=== PATIENT | female | born 1950 | race Caucasian/White ===

== ENCOUNTER 2017-08-13 06:56 | Emergency (ER) | payer BC ==
[2017-08-13] MEDS ORDERED: Ondansetron ODT 4 MG TAB ONE (07:12)
[2017-08-13] MEDS ORDERED: Ibuprofen 200 MG TAB ONE (07:45)
== END 2017-08-13 08:34 | disposition home or self-care (01) ==
LOC: SCSER 06:56
DX: R11.2 Nausea with vomiting, unspecified (principal); R51 Headache; K21.9 Gastro-esophageal reflux disease without esophagitis; E78.5 Hyperlipidemia, unspecified; I10 Essential (primary) hypertension
CPT/HCPCS: 99283; Q0162

== ENCOUNTER 2017-12-16 07:35 | Outpatient (CLI) | payer BC ==
--- NOTE | 2017-12-16 10:38 | ULT ---
ULTRASOUND ABDOMEN: Date: 12/16/17 HISTORY: Abdominal pain. FINDINGS: The patient is post cholecystectomy. The liver demonstrates homogeneous echotexture without focal mas s or intrahepatic ductal dilatation. The spleen is normal, measuring 10.4 cm. The common duct measure s 3.0 mm in diameter. The visualized portions of the pancreas, aorta, and IVC are unremarkable. No hy dronephrosis or renal mass is seen on either side. There is a prominent left-sided renal pelvis. The right kidney measures 7.1 cm and the left kidney measures 12.3 cm. IMPRESSION: 1. Status post cholecystectomy. 2. Atrophic right kidney. POS: [facility]
== END 2017-12-16 07:36 | disposition home or self-care (01) ==
LOC: ULT 07:35
PROVIDERS: ATTEND Internal Medicine
DX: R10.84 Generalized abdominal pain (principal); N28.89 Other specified disorders of kidney and ureter; Z90.49 Acquired absence of other specified parts of digestive tract
CPT/HCPCS: 76700

== ENCOUNTER 2018-05-14 17:05 | Emergency (ER) | payer BC, MEDICARE ==
[2018-05-14] MEDS ORDERED: Diazepam 5 MG TAB ONE (17:37)
[2018-05-14] MEDS ORDERED: Dexamethasone 10 MG/ML VIAL ONE (17:38)
[2018-05-14] MEDS ORDERED: Ketorolac Tromethamine 30 MG/ML VIAL ONE (17:38)
[2018-05-14] MEDS ORDERED: Morphine 4 MG/ML VIAL ONE (17:38)
== END 2018-05-14 18:00 | disposition home or self-care (01) ==
LOC: SCSER 17:05
DX: G56.21 Lesion of ulnar nerve, right upper limb (principal); K21.9 Gastro-esophageal reflux disease without esophagitis; E78.5 Hyperlipidemia, unspecified; I10 Essential (primary) hypertension; Z79.899 Other long term (current) drug therapy
CPT/HCPCS: 93005; 96372; J1100; J1885; J2270

== ENCOUNTER 2018-07-06 14:43 | Emergency (ER) | payer BC, MEDICARE ==
[2018-07-06 15:13] LABS: #Basophils 0.1 thou/uL (0.0-0.2); #Eosinphils 0.2 thou/uL (0.0-0.7); #Monocytes 0.4 thou/uL (0.11-0.59); #Neutrophils 3.8 thou/uL (1.40-6.50); %Basophils 1.1 % (0.0-1.0); %Eosinophils 2.4 % (0.0-10.0); %Lymphocytes 30.8 % (21.0-51.0); %Monocytes 6.6 % (0.0-10.0); Hemoglobin 15.3 g/dL (12.0-16.0); Mean Corpuscular HGB CONC 32.1 g/dL (32.0-36.0); Mean Corpuscular Volume 87.1 fL (78.0-98.0); Mean Platelet Volume 8.7 fL (7.4-10.4); Platelet Count 203 thou/uL (130-400); RBC Distribution Width 12.5 % (11.5-14.5); Red Blood Cell (RBC) Count 5.46 mill/uL (4.20-5.40); White Blood Cell (WBC) Count 6.4 thou/uL (4.8-10.8)
[2018-07-06 15:22] LABS: ALT (SGPT) 21 U/L (8-55); AST (SGOT) 20 U/L (5-34); Albumin 4.3 g/dL (3.4-4.8); Alkaline Phosphatase 58 U/L (40-150); Anion Gap 15 mmol/L (10-20); BUN (Urea Nitrogen) 13 mg/dL (9.8-20.1); Bilirubin, Total 0.5 mg/dL (0.2-1.2); Calc. Creatinine Clearance 0 mL/min (70-130); Calcium 9.8 mg/dL (7.8-10.44); Carbon Dioxide 24 mmol/L (23-31); Chloride 106 mmol/L (98-107); Estimated GFR-MDRD 75; Globulin 2.8 g/dL (2.4-3.5); Glucose 116 mg/dL (80-115); Potassium 3.5 mmol/L (3.5-5.1); Protein, Total 7.1 g/dL (6.0-8.3); Sodium 141 mmol/L (136-145)
--- NOTE | 2018-07-06 15:24 | RAD ---
SINGLE VIEW OF THE CHEST: Comparison: None. History: Chest palpitations, dyspnea, dizziness. FINDINGS: Single view of the chest shows a normal sized cardiomediastinal silhouette. There is no evidence of c onsolidation, mass, or pleural effusion. The bones are unremarkable. IMPRESSION: No evidence of acute cardiopulmonary disease. POS: [facility]
--- NOTE | 2018-07-09 22:21 | EKG ---
Test Reason : CHEST PAIN Blood Pressure : / mmHG Vent. Rate : 079 BPM Atrial Rate : 079 BPM P-R Int : 154 ms QRS Dur : 082 ms QT Int : 360 ms P-R-T Axes : 000 -25 -33 degrees QTc Int : 412 ms Normal sinus rhythm Q waves III, aVF new since 14-MAY-2018 Abnormal ECG Confirmed by JOAQUÍN LACY, HAYLEY ([id number]), supervising film or videotape editor ALYSSA COBB ([id number]) on 07/09/2018 10:21:16 PM Referred By: Shannon YANES Confirmed By:HAYLEY YANES MD
== END 2018-07-06 16:07 | disposition home or self-care (01) ==
LOC: SCSER 14:43
DX: I49.3 Ventricular premature depolarization (principal); R55 Syncope and collapse; K21.9 Gastro-esophageal reflux disease without esophagitis; E78.5 Hyperlipidemia, unspecified; I10 Essential (primary) hypertension
CPT/HCPCS: 71045; 80053; 83880; 84484; 85025; 93005

== ENCOUNTER 2018-10-04 11:55 | Outpatient (CLI) | payer BC, MEDICARE ==
--- NOTE | 2018-10-04 13:02 | MMO ---
Bilateral MAMMO Bilat Screen [facility]. CLINICAL HISTORY: Patient is 67 years old and is seen for screening. The patient has no family history of breast cancer. The patient has no personal history of cancer. VIEWS: The views performed were: bilateral craniocaudal with tomosynthesis and bilateral mediolateral oblique with tomosynthesis. FILMS COMPARED: The present examination has been compared to prior imaging studies performed at [facility] on 07/03/2015 and 02/22/2017, and at [facility] on 11/06/2009 and 08/30/2013. MAMMOGRAM FINDINGS: There are scattered fibroglandular densities. Finding 1: There are stable benign appearing calcifications seen in both breasts. Finding 2: There are stable benign appearing densities seen in both breasts. There are no suspicious masses, suspicious calcifications, or new areas of architectural distortion. IMPRESSION: THERE IS NO MAMMOGRAPHIC EVIDENCE OF MALIGNANCY. A ROUTINE FOLLOW-UP MAMMOGRAM IN 1 YEAR IS RECOMMENDED. THE RESULTS OF THIS EXAM WERE SENT TO THE PATIENT. ACR BI-RADS Category 2 - Benign finding MAMMOGRAPHY NOTE: 1. A negative mammogram report should not delay a biopsy if a dominant of clinically suspicious mass is present. 2. Approximately 10% to 15% of breast cancers are not detected by mammography. 3. Adenosis and dense breasts may obscure an underlying neoplasm.
== END 2018-10-04 11:56 | disposition home or self-care (01) ==
LOC: BICMAMMO 11:55
PROVIDERS: ATTEND Internal Medicine
DX: Z12.31 Encounter for screening mammogram for malignant neoplasm of breast (principal)
CPT/HCPCS: 77063; 77067

== ENCOUNTER 2018-11-02 13:56 | Outpatient (CLI) | payer BC ==
--- NOTE | 2018-11-02 15:38 | CT ---
CT ABDOMEN WITH AND WITHOUT CONTRAST: Date: 11/02/18 INDICATION: Epigastric pain. Reference made to the 09/14/16 exam (CT abdomen/pelvis with contrast). FINDINGS: Evaluation of precontrast imaging reveals no evidence of calcified urinary tract calculi. There are m etallic clips related to prior cholecystectomy. Granulomatous calcification of the spleen is present. The contrast-opacified small bowel is of normal caliber. Postcontrast imaging reveals no pathologic enhancing mass in the solid abdominal organs. Parapelvic cyst formation of the left kidney is again d emonstrated. Abdominal aorta is normal in caliber. There is no free air. Mild levocurvature of the melinda mbar spine is present. There are no acute osseous abnormalities seen. The imaged lung bases reveal mi nimal subpleural patchy opacification. IMPRESSION: No acute abnormalities are visualized. POS: [facility]
== END 2018-11-02 13:57 | disposition home or self-care (01) ==
LOC: BICCT 13:56
PROVIDERS: ATTEND Internal Medicine
DX: N28.1 Cyst of kidney, acquired (principal); R10.9 Unspecified abdominal pain
CPT/HCPCS: 74170

== ENCOUNTER 2019-01-25 07:46 | Outpatient (CLI) | payer BC ==
--- NOTE | 2019-01-25 13:34 | NM ---
NUCLEAR MEDICINE GASTRIC EMPTYING EXAM: HISTORY: Left upper quadrant abdominal pain. TECHNIQUE: A nuclear medicine gastric emptying exam was performed after administration of 2.2 mCi of sulfur virgen oid mixed with eggs. FINDINGS: 18% emptying is seen at 26 minutes. 39% emptying is seen at 54 minutes. 77% emptying is seen at 128 minutes. 98% emptying is seen at 193 minutes. T-1/2 gastric emptying is approximately 75 minutes. No gastroesophageal reflux was seen during the examination. IMPRESSION: Normal gastric emptying exam. POS: [facility]
== END 2019-01-25 07:47 | disposition home or self-care (01) ==
LOC: NM 07:46
PROVIDERS: ATTEND Internal Medicine Gastroenterology
DX: K44.9 Diaphragmatic hernia without obstruction or gangrene (principal); K21.9 Gastro-esophageal reflux disease without esophagitis; R10.12 Left upper quadrant pain; Z80.0 Family history of malignant neoplasm of digestive organs
CPT/HCPCS: 78264; A9541

== ENCOUNTER 2019-06-06 09:05 | Outpatient (CLI) | payer BC ==
--- NOTE | 2019-06-06 10:10 | CT ---
EXAM: CT angiogram abdomen with IV contrast and 3-D reconstruction PROVIDED CLINICAL HISTORY: Mesenteric arteritis. Patient has throbbing sensations and abdomen after eating. 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 This is at the site of the trifurcation of the common hepatic, left gastric, and splenic arteries. There is suggested mild narrowing at the origin o f the common hepatic artery, but the hepatic arteries otherwise appear patent. The abdominal aorta is normal in caliber without evidence of an aortic dissection. The bilateral comm on iliac arteries are patent. There is mild atherosclerotic plaque and vascular calcifications seen in the internal iliac arteries bilaterally mild atherosclerotic irregularity is seen involving the ri ght external iliac artery. The superior and inferior mesenteric arteries are patent. There is minimal linear atelectasis versus scarring at the posterior right lung base. Lung bases are otherwise clear. The liver, spleen, pancreas, bilateral adrenal glands, and right kidney demonstrate a normal CT appea tenisha left renal parapelvic cysts are again noted. Loops of small bowel are normal in caliber. However, there does appear to be mild bowel wall thickeni ng involving loops of proximal jejunum. No adjacent inflammatory changes are seen. Findings could be related to enteritis in the correct clinical scenario. Small hiatal hernia is present. Small amount of retained fecal material seen in the ascending colon. Degenerative changes are seen in the lower lumbar spine. A few nonspecific nonenlarged mesenteric lymph nodes are identified. Stable from prior exam. IMPRESSION: 1. 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 2. Mesenteric vessels do appear patent. The abdominal aorta is normal in caliber without evidence of aortic dissection or aneurysm. 3. Mild atherosclerotic irregularity involving the visualized iliac arteries. 4. Suggested mild bowel wall thickening involving loops of proximal jejunum. This could be related to peristalsis and incomplete distention, but enteritis in the correct clinical scenario is a possibility. 5. Small hiatal hernia.
[2019-06-06] MEDS ORDERED: Iopamidol 370 76% 100 ML VIAL ONE (14:41)
== END 2019-06-06 09:06 | disposition home or self-care (01) ==
LOC: CT 09:05
PROVIDERS: ATTEND Internal Medicine Gastroenterology
DX: K21.9 Gastro-esophageal reflux disease without esophagitis (principal); K44.9 Diaphragmatic hernia without obstruction or gangrene; K59.09 Other constipation; R10.12 Left upper quadrant pain; I70.208 Unspecified atherosclerosis of native arteries of extremities, other extremity; I72.8 Aneurysm of other specified arteries; Z80.0 Family history of malignant neoplasm of digestive organs
CPT/HCPCS: 74175; 82565; Q9967

== ENCOUNTER 2020-02-20 08:08 | Outpatient (CLI) | payer BC ==
--- NOTE | 2020-02-20 09:01 | ULT ---
Ultrasound of theabdomen: 02/20/2020 COMPARISON:Correlation made to CT of the abdomen performed 11/02/2018 HISTORY:Renal cyst TECHNIQUE: Multiplanar grayscale sonographic imaging of theabdomen provided FINDINGS:The visualized portions of the abdominal aorta, IVC, and pancreas appear grossly unremarkabl e. There is no focal liver lesion or intrahepatic biliary dilatation. The common bile duct measures 3 mm, within normal limits. The right kidney is partially obscured by bowel gas and demonstrates probable wall cortical thinning within the upper pole region on the basis of scar. Right kidney measures approximately 8 cm in craniocaudal dimension and demonstrates no stone, hydronephrosis, or mass. The left kidney measures 11.3 cm in craniocaudal dimension. There is decreased echogenicity within th e region of the renal hilum on the left, likely on the basis of parapelvic cysts when compared to prior CT exam. No hydronephrosis, mass lesion, or stones seen. Spleen measures up to 8.8 cm, within normal limits. The gallbladder is surgically absent IMPRESSION:No acute findings.
--- NOTE | 2020-02-20 09:23 | BD ---
BONE DENSITOMETRY: Date: 02/20/2020 HISTORY: Postmenopausal screening. FINDINGS: Lumbar Spine: BMD (g/cm2) L1 0.895 T-Score: -0.9 L2 0.971 T-Score: -0.5 L3 1.077 T-Score: -0.1 L4 1.188 T-Score: 1.2 Total 1.039 T-Score: -0.1 Left Femoral Neck: 0.649 T-Score: -1.8 Total Femur: 0.913 T-Score: -0.2 IMPRESSION: 1. Bone mineral density of the lumbar spine within normal range. 2. Bone mineral density of the femoral neck indicate osteopenia. 10 YEAR FRACTURE RISK: Major osteoporotic fracture: 9.8% Hip fracture: 1.4% POS: [facility]
--- NOTE | 2020-02-20 11:31 | MMO ---
Bilateral MAMMO Bilat Screen [facility]. CLINICAL HISTORY: Patient is 69 years old and is seen for screening. The patient has no family history of breast cancer. The patient has no personal history of cancer. VIEWS: The views performed were: bilateral craniocaudal with tomosynthesis and bilateral mediolateral oblique with tomosynthesis. FILMS COMPARED: The present examination has been compared to prior imaging studies performed at [facility] on 07/03/2015, 02/22/2017 and 10/04/2018, and at [facility] on 08/30/2013. This study has been interpreted with the assistance of computer-aided detection. MAMMOGRAM FINDINGS: There are scattered fibroglandular densities. Focal asymmetry with distortion inner right breast seen on cc tomosynthesis. In the left breast, there are no suspicious masses, calcifications or areas of architectural distortion. IMPRESSION: FINDING IN THE RIGHT BREAST REQUIRES ADDITIONAL EVALUATION. SPOT COMPRESSION IS RECOMMENDED. THE RESULTS OF THIS EXAM WERE SENT TO THE PATIENT. ACR BI-RADS Category 0 - Incomplete: Need additional imaging evaluation. [facility] will notify the patient of the need for additional imaging services. MAMMOGRAPHY NOTE: 1. A negative mammogram report should not delay a biopsy if a dominant of clinically suspicious mass is present. 2. Approximately 10% to 15% of breast cancers are not detected by mammography. 3. Adenosis and dense breasts may obscure an underlying neoplasm. Reported by: NORA EDMONDS MD Electonically Signed: [id number]
== END 2020-02-20 08:09 | disposition home or self-care (01) ==
LOC: BICMAMMO 08:08
PROVIDERS: ATTEND Internal Medicine
DX: Z12.31 Encounter for screening mammogram for malignant neoplasm of breast (principal); Z13.820 Encounter for screening for osteoporosis; N28.1 Cyst of kidney, acquired; Z78.0 Asymptomatic menopausal state; M85.852 Other specified disorders of bone density and structure, left thigh
CPT/HCPCS: 77063; 77067; 77080; 93975

== ENCOUNTER 2020-02-21 11:07 | Outpatient (CLI) | payer BC ==
--- NOTE | 2020-02-21 11:30 | MMO ---
Right Breast MAMMO Unilat Diag [facility]. CLINICAL HISTORY: Patient is 69 years old and is seen for additional evaluation requested from prior study. The patient has no family history of breast cancer. The patient has no personal history of cancer. VIEWS: The views performed were: right craniocaudal spot compression with tomosynthesis and right mediolateral with tomosynthesis. FILMS COMPARED: The present examination has been compared to [place] [facility] [place], 02/22/2017, 10/04/2018 and 02/20/2020. This study has been interpreted with the assistance of computer-aided detection. MAMMOGRAM FINDINGS: There are scattered fibroglandular densities. Tomosynthesis spot compression images show the abnormality to represent superimpostion of normal breast parenchyma. There are no suspicious masses, suspicious calcifications, or new areas of architectural distortion. IMPRESSION: THERE IS NO MAMMOGRAPHIC EVIDENCE OF MALIGNANCY. A ROUTINE FOLLOW-UP MAMMOGRAM IN 1 YEAR IS RECOMMENDED. THE RESULTS OF THIS EXAM WERE SENT TO THE PATIENT. ACR BI-RADS Category 2 - Benign finding MAMMOGRAPHY NOTE: 1. A negative mammogram report should not delay a biopsy if a dominant of clinically suspicious mass is present. 2. Approximately 10% to 15% of breast cancers are not detected by mammography. 3. Adenosis and dense breasts may obscure an underlying neoplasm. Reported by: KALYN SOTO MD Electonically Signed: [id number]
== END 2020-02-21 11:08 | disposition home or self-care (01) ==
LOC: BICMAMMO 11:07
PROVIDERS: ATTEND Internal Medicine
DX: R92.2 Inconclusive mammogram (principal)
CPT/HCPCS: G0279

== ENCOUNTER 2022-08-21 10:17 | Emergency (ER) | payer BC ==
[~2022-08-21 10:17] MED LIST: Iopamidol-370 76% 500 ML MDV (1 ML CHARGE) ONE
[2022-08-21 10:41] LABS: #Basophils 0.1 thou/uL (0.0-0.2); #Eosinphils 0.1 thou/uL (0.0-0.7); #Monocytes 0.5 thou/uL (0.11-0.59); %Basophils 1.2 % (0.0-1.0); %Eosinophils 1.8 % (0.0-10.0); %Lymphocytes 35.4 % (21.0-51.0); %Monocytes 8.4 % (0.0-10.0); %Neutrophils 53.1 % (42.0-75.0); Hemoglobin 15.4 g/dL (12.0-16.0); Mean Corpuscular HGB CONC 33.3 g/dL (32.0-36.0); Mean Corpuscular Hemoglobin 28.8 pg (27.0-31.0); Mean Corpuscular Volume 86.5 fl (78.0-98.0); Mean Platelet Volume 8.9 fL (7.4-10.4); Platelet Count 172 10x3/uL (130-400); RBC Distribution Width 11.6 % (11.5-14.5); Red Blood Cell (RBC) Count 5.35 mill/uL (4.20-5.40); White Blood Cell (WBC) Count 5.7 10x3/uL (4.8-10.8)
[2022-08-21 10:54] LABS: INR-International Normal Ratio 0.9; PTT 24.9 sec (22.9-36.1); Prothrombin Time 11.9 sec (12.0-14.7)
[2022-08-21 11:15] LABS: ALT (SGPT) 21 U/L (8-55); AST (SGOT) 23 U/L (5-34); Albumin 4.3 g/dL (3.4-4.8); Alkaline Phosphatase 51 U/L (40-110); Anion Gap 16 mmol/L (10-20); BUN (Urea Nitrogen) 12 mg/dL (9.8-20.1); Bilirubin, Total 0.4 mg/dL (0.2-1.2); CK (CPK) 91 U/L (29-168); Calc. Creatinine Clearance 0 mL/min (70-130); Calcium 9.6 mg/dL (7.8-10.44); Carbon Dioxide 23 mmol/L (23-31); Chloride 103 mmol/L (98-107); Estimated GFR 77; Globulin 3.1 g/dL (2.4-3.5); Glucose 102 mg/dL (80-115); Potassium 3.6 mmol/L (3.5-5.1); Protein, Total 7.4 g/dL (5.8-8.1); Sodium 138 mmol/L (136-145)
[2022-08-21] MEDS ORDERED: Ketorolac Tromethamine 30 MG/ML VIAL ONE (11:47)
[2022-08-21 12:06] LABS: Bilirubin Negative (Negative); Blood, Urine Negative (Negative); Clarity Clear (Clear); Glucose, Urine (Dipstick) Normal (Negative); Ketone, Urine Negative (Negative); Leukocyte Negative Leu/uL (Negative); Nitrite Negative (Negative); Protein, Urine (Dipstick) Negative (Neg-Trace); Specific Gravity, Urine 1.016 (1.002-1.036); Urobilinogen Normal mg/dL (Less than 2); pH, Urine 7.5 (5.0-9.0)
== END 2022-08-21 15:30 | disposition home or self-care (01) ==
LOC: ERS 10:17
DX: R53.1 Weakness (principal); I10 Essential (primary) hypertension; E78.5 Hyperlipidemia, unspecified; K21.9 Gastro-esophageal reflux disease without esophagitis
CPT/HCPCS: 36416; 70450; 70496; 70498; 70551; 71045; 80053; 81003; 82550; 84484; 85025; 85610; 85730; 93005; 96374; J1885; Q9967

== ENCOUNTER 2023-02-11 13:01 | Outpatient (CLI) | payer BC | END 2023-02-11 13:02 | disposition home or self-care (01) | LOC: BICULT 13:01 | PROVIDERS: ATTEND Internal Medicine | DX: N39.0 Urinary tract infection, site not specified (principal) | CPT/HCPCS: 76770 ==

== ENCOUNTER 2023-10-21 09:59 | Outpatient (CLI) | payer BC ==
[2023-10-21] MEDS ORDERED: Iopamidol-370 76% 500 ML BOT (X-RAY USE) FS ONE (10:42)
[2023-10-21] MEDS ORDERED: Furosemide 40 MG (4 mL) VIAL ONE (11:21)
== END 2023-10-21 10:00 | disposition home or self-care (01) ==
LOC: RAD 09:59
PROVIDERS: ATTEND Urology
DX: N13.30 Unspecified hydronephrosis (principal); N28.9 Disorder of kidney and ureter, unspecified
CPT/HCPCS: 51600; 74455; 78708; A4641; A9562; J1940; Q9967

== ENCOUNTER 2025-02-15 14:46 | Outpatient (CLI) | payer MEDICARE | END 2025-02-15 14:47 | disposition home or self-care (01) | LOC: SCSBT 14:46 | PROVIDERS: ATTEND Obstetrics & Gynecology | DX: Z78.0 Asymptomatic menopausal state (principal); M85.852 Other specified disorders of bone density and structure, left thigh | CPT/HCPCS: 77080 ==